=== PATIENT | female | born 1995 | race Caucasian/White ===

== ENCOUNTER 2021-04-23 22:10 | Inpatient (IN) | payer BC ==
[2021-04-23] MEDS ORDERED: Water For Irrigation,Sterile 1,000 ML Container IRR PRN ×2 (22:24→22:55)
[2021-04-23] MEDS ORDERED: Butorphanol 1 MG/ML SDV IVPUSH PRN ×2 (22:24→22:55)
[2021-04-23] MEDS ORDERED: Sodium Chloride 0.9% 2.5 ML Syringe FLUSH PRN ×2 (22:24→22:55)
[2021-04-23] MEDS ORDERED: Carboprost Tromethamine 250 MCG/1 ML Amp IM PRN ×2 (22:24→22:55)
[2021-04-23] MEDS ORDERED: Ondansetron 4 MG/2 ML SDV IVPUSH PRN ×2 (22:24→22:55)
[2021-04-23] MEDS ORDERED: Misoprostol 200 MCG Tab PO PRN ×2 (22:24→22:55)
[2021-04-23] MEDS ORDERED: Methylergonovine 0.2 MG/1 ML Amp IM PRN ×2 (22:24→22:55)
[2021-04-23] MEDS ORDERED: Lidocaine 1% 50 ML MDV INJECT PRN ×2 (22:24→22:55)
[2021-04-23] MEDS ORDERED: Tranexamic Acid 1,000 MG in Sodium Chloride 0.9% 100 ML IV PRN ×2 (22:24→22:55)
[2021-04-23] MEDS ORDERED: Terbutaline 1 MG/ML SDV SUBCUT PRN ×2 (22:24→22:55)
[2021-04-23] MEDS ORDERED: Sodium Chloride 0.9% 20 ML SDV IV PRN ×2 (22:24→22:55)
[2021-04-23] MEDS ORDERED: Sodium Chloride 0.9% 10 ML Syringe FLUSH PRN ×2 (22:24→22:55)
[2021-04-23] MEDS ORDERED: Oxytocin/0.9 % Sodium Chloride 30 UNIT/500 ML BAG IV SCH ×4 (22:30→23:00)
[2021-04-23] MEDS ORDERED: Lactated Ringers 1,000 ML IV SCH (22:30)
[2021-04-23] MEDS: Lactated Ringers 1,000 ML IV SCH (23:30)
[2021-04-23] MEDS ORDERED: Ropivacaine 100 ML ONE (23:59)
[2021-04-24] MEDS ORDERED: Bupivacaine 0.25% 10 ML SDV ONE
[2021-04-24] MEDS ORDERED: ePHEDrine 50 MG/ML SDV IVPUSH PRN (00:41)
[2021-04-24] MEDS ORDERED: Ropivacaine 200 MG in Premix Bag 1 BAG EPIDUR SCH (00:45)
[2021-04-24] MEDS: Lactated Ringers 1,000 ML IV SCH (05:06)
[2021-04-24] MEDS ORDERED: Lanolin 100% Cream 7 GM Tube TOP PRN (09:20)
[2021-04-24] MEDS ORDERED: Benzocaine/Menthol 20%-0.5% Spray 78 GM Cannister TOP PRN (09:20)
[2021-04-24] MEDS ORDERED: Ibuprofen 400 MG Tab PO PRN (09:20)
[2021-04-24] MEDS ORDERED: Bisacodyl 10 MG Supp RECTAL PRN (09:20)
[2021-04-24] MEDS ORDERED: Docusate Sodium 100 MG Cap PO PRN (09:20)
[2021-04-24] MEDS ORDERED: Witch Hazel Medicated Pads 40/Jar TOP PRN (09:20)
[2021-04-24] MEDS ORDERED: Acetaminophen 500 MG Tab PO PRN (09:20)
[2021-04-24] MEDS: Ibuprofen 800 MG Tab PO PRN ×3 (10:36→23:10)
[2021-04-24] MEDS: Acetaminophen 500 MG Tab PO PRN ×3 (10:37→21:44)
[2021-04-25] MEDS: Acetaminophen 500 MG Tab PO PRN ×2 (03:12→07:36)
[2021-04-25] MEDS: Ibuprofen 800 MG Tab PO PRN (07:36)
== END 2021-04-25 11:45 | disposition home or self-care (01) | DRG 560 ==
LOC: MW.OB 22:10 → MW.OBCHECK 22:10 → MW.OB 22:24 → OBSVTOIN 04-24 09:20 → MW.OB 04-24 12:00
PROVIDERS: ADMIT Obstetrics & Gynecology; ATTEND Obstetrics & Gynecology
PROC: 10E0XZZ Delivery of Products of Conception, External Approach (ICD-10-PCS; principal; 2021-04-24)
PROC: 10907ZC Drainage of Amniotic Fluid, Therapeutic from Products of Conception, Via Natural or Artificial Opening (ICD-10-PCS; 2021-04-24)
PROC: 0UQGXZZ Repair Vagina, External Approach (ICD-10-PCS; 2021-04-24)
PROC: 0UQMXZZ Repair Vulva, External Approach (ICD-10-PCS; 2021-04-24)
PROC: 3E0R3BZ Introduction of Anesthetic Agent into Spinal Canal, Percutaneous Approach (ICD-10-PCS; 2021-04-24)
PROC: 00HU33Z Insertion of Infusion Device into Spinal Canal, Percutaneous Approach (ICD-10-PCS; 2021-04-24)
DX: O99.02 Anemia complicating childbirth (principal); D50.9 Iron deficiency anemia, unspecified; Z37.0 Single live birth; Z3A.37 37 weeks gestation of pregnancy; O76 Abnormality in fetal heart rate and rhythm complicating labor and delivery; O70.0 First degree perineal laceration during delivery; Z20.822 Contact with and (suspected) exposure to COVID-19
CPT/HCPCS: 36415; 59025; 59409; 80305-QW; 81003; 82803; 85014; 85018; 85027; 86592; 86850; 86900; 86901; 87086; A9270-GY; J2001; J2590; J2795; J3490; J7120; U0002

== ENCOUNTER 2022-02-08 23:04 | Emergency (ER) | payer BC ==
[2022-02-09] MEDS ORDERED: Ketorolac 30 MG/ML SDV IM STA (01:24)
[2022-02-09 01:42] LABS: CORONAVIRUS COVID-19 NAA NEGATIVE (NEGATIVE); INFLUENZA A NAA NEGATIVE (NEGATIVE); INFLUENZA B NAA NEGATIVE (NEGATIVE); RESPIRATORY SYNCYTIAL VIR NAA NEGATIVE (NEGATIVE)
[2022-02-09 02:05] LABS: BLOOD UREA NITROGEN,BUN 19 mg/dL (7.0-18.0); CARBON DIOXIDE,CO2 28.2 mmol/L (21.0-32.0); CHLORIDE,CL 107 mmol/L (98-107); GLUCOSE RANDOM 96 mg/dL (74-106); LIPASE 25 U/L (73-393); POTASSIUM,K 3.4 mmol/L (3.5-5.1); SODIUM,NA 141 mmol/L (136-145)
[2022-02-09] MEDS ORDERED: Lactated Ringers 1,000 ML IV STA (02:20)
[2022-02-09] MEDS ORDERED: Tamsulosin 0.4 MG Cap.ER PO ONE (02:29)
[2022-02-09 02:32] LABS: ESTIMATED GFR 64 mL/min (>60)
[2022-02-09] MEDS ORDERED: cefTRIAXone 1 GM in Sodium Chloride 0.9% 50 ML IV STA (02:50)
== END 2022-02-09 03:50 | disposition home or self-care (01) ==
LOC: MW.ED 23:04
DX: N13.2 Hydronephrosis with renal and ureteral calculous obstruction (principal); N39.0 Urinary tract infection, site not specified; N17.9 Acute kidney failure, unspecified; Z20.822 Contact with and (suspected) exposure to COVID-19
CPT/HCPCS: 0241U; 36415; 74176; 80053; 81001; 81025; 83690; 85025; 87086; 96365; 96372; 99284; A9270; J0696; J1885; J7120

== ENCOUNTER 2022-02-10 15:55 | Emergency (ER) | payer BC ==
[2022-02-10] MEDS ORDERED: Ondansetron 4 MG/2 ML SDV IVPUSH ONE (18:17)
[2022-02-10] MEDS ORDERED: Sodium Chloride 0.9% 1,000 ML IV ONE (18:17)
[2022-02-10] MEDS ORDERED: Morphine 4 MG/ML Syringe IVPUSH ONE (18:17)
[2022-02-10 19:15] LABS: CARBON DIOXIDE,CO2 26.3 mmol/L (21.0-32.0)
[2022-02-10] MEDS ORDERED: Acetaminophen/HYDROcodone 325-5 MG Tab PO ONE (19:53)
[2022-02-10] MEDS ORDERED: Ciprofloxacin 500 MG Tab PO ONE (19:53)
== END 2022-02-10 20:00 | disposition home or self-care (01) ==
LOC: MW.ED 15:55
DX: N20.0 Calculus of kidney (principal); Z79.899 Other long term (current) drug therapy
CPT/HCPCS: 36415; 80053; 81001; 85025; 87086; 99284; A9270; J2270; J2405; J7030

== ENCOUNTER 2022-06-24 11:34 | Emergency (ER) | payer BC ==
[2022-06-24] MEDS ORDERED: Bacitracin Oint 1 GM U/D Packet TOP ONE (13:33)
== END 2022-06-24 14:32 | disposition home or self-care (01) ==
LOC: MW.ED 11:34
DX: R04.0 Epistaxis (principal); Z72.0 Tobacco use
CPT/HCPCS: 30901; 30903; 99283; 99284

== ENCOUNTER 2022-10-27 13:54 | Emergency (ER) | payer SELFPAY | END 2022-10-27 15:04 | disposition home or self-care (01) | LOC: MW.ED 13:54 | DX: K04.7 Periapical abscess without sinus (principal) | CPT/HCPCS: 41800; 99283 ==

== ENCOUNTER 2022-12-31 20:51 | Emergency (ER) | payer SELFPAY ==
[2022-12-31] MEDS ORDERED: Clindamycin HCl 150 MG Cap PO STA (21:15)
== END 2022-12-31 21:40 | disposition home or self-care (01) ==
LOC: MW.ED 20:51
DX: K04.7 Periapical abscess without sinus (principal)
CPT/HCPCS: 99283; A9270

== ENCOUNTER 2023-02-22 23:25 | Emergency (ER) | payer SELFPAY ==
[2023-02-23 00:29] LABS: BASOPHILS ABSOLUTE AUTO 0.03 K/uL (0.00-0.20); BASOPHILS PERCENT AUTO 0.4 % (0.0-1.0); EOSINOPHILS ABSOLUTE AUTO 0.09 K/uL (0.00-0.45); EOSINOPHILS PERCENT AUTO 1.2 % (0.0-6.0); HEMATOCRIT 34.5 % (37.0-47.0); HEMOGLOBIN 11.7 g/dL (12.0-16.0); IMMATURE GRAN ABSOLUTE AUTO 0.02 K/uL (0.00-0.05); IMMATURE GRAN PERCENT AUTO 0.3 % (0.0-0.4); LYMPHOCYTES ABSOLUTE AUTO 1.86 K/uL (1.00-4.80); LYMPHOCYTES PERCENT AUTO 24.5 % (24.0-44.0); MEAN CORPUSCULAR HEMOGLOBIN 29.4 pg (28.0-32.0); MEAN CORPUSCULAR HGB CONC 33.9 g/dL (32.0-36.0); MEAN CORPUSCULAR VOLUME 86.7 fL (83.0-99.0); MEAN PLATELET VOLUME 10.9 fL (9.4-12.3); MONOCYTES ABSOLUTE AUTO 0.65 K/uL (0.00-0.80); MONOCYTES PERCENT AUTO 8.6 % (0.0-8.0); NEUTROPHILS ABSOLUTE AUTO 4.95 K/uL (1.80-7.70); PLATELET COUNT,PLT 212 K/uL (150-400); RED BLOOD CELL COUNT 3.98 M/uL (4.10-5.30)
[2023-02-23] MEDS: cefTRIAXone 1 GM Vial IM ONE (00:46)
[2023-02-23] MEDS: cefTRIAXone 1 GM in Sodium Chloride 0.9% 50 ML IV ONE (00:48)
[2023-02-23 00:49] LABS: A/G RATIO 1.3 (0.9-1.6); BILIRUBIN TOTAL 0.4 mg/dL (0.2-1.0); CALCIUM 8.9 mg/dL (8.5-10.1); CARBON DIOXIDE,CO2 28.5 mmol/L (21.0-32.0); EST CRCL DRUG DOSING (CG) 64.06 mL/min; POTASSIUM,K 3.7 mmol/L (3.5-5.1); PROTEIN TOTAL,TP 7.1 g/dL (6.4-8.2)
[2023-02-23] MEDS: Sulfamethoxazole/Trimethoprim 800-160 MG Tab PO ONE (01:28)
== END 2023-02-23 01:26 | disposition home or self-care (01) ==
LOC: MW.ED 23:25
DX: K08.89 Other specified disorders of teeth and supporting structures (principal)
CPT/HCPCS: 36415; 80053; 85025; 96365; 99283; 99283-25; A9270-GY; J0696; J3490

== ENCOUNTER 2023-06-02 15:28 | Emergency (ER) | payer SELFPAY | END 2023-06-02 16:45 | disposition home or self-care (01) | LOC: MW.ED 15:28 | DX: K04.7 Periapical abscess without sinus (principal); Z79.899 Other long term (current) drug therapy; Z75.8 Other problems related to medical facilities and other health care | CPT/HCPCS: 99283 ==

== ENCOUNTER 2023-10-19 22:01 | Emergency (ER) | payer SELFPAY ==
[2023-10-20] MEDS: Lidocaine 2% Viscous Solution 15 ML UD PO ONE (00:16)
[2023-10-20] MEDS: Amoxicillin/Clavulanate K 875-125 MG Tab PO ONE (00:16)
[2023-10-20] MEDS: Benzocaine 20% Topical Spray UD MUCMEM ONE (00:16)
== END 2023-10-20 00:23 | disposition home or self-care (01) ==
LOC: MW.ED 22:01
DX: K08.89 Other specified disorders of teeth and supporting structures (principal); Z75.8 Other problems related to medical facilities and other health care
CPT/HCPCS: 99282; A9270; 99283